=== PATIENT | male | born 1955 | race African-American/Black ===

== ENCOUNTER 2020-07-26 07:20 | Inpatient (IN) | payer MEDICARE ==
[2020-07-21 09:09] LABS: BASOPHILS # (AUTO) 0.1 (0.0-0.1); BASOPHILS % 0.8 % (0.0-1.0); EOSINOPHILS # (AUTO) 0.1 (0.0-0.4); EOSINOPHILS % 1.7 % (0.0-6.0); HEMATOCRIT 37.4 % (38.2-49.6); HEMOGLOBIN 12.4 g/dL (14.0-18.0); LYMPHOCYTES # (AUTO) 1.8 (1.0-3.2); LYMPHOCYTES % 27.8 % (18.0-39.1); MEAN CORPUSCULAR HEMOGLOBIN 28.1 pg (28-32); MEAN CORPUSCULAR HGB CONC 33.2 g/dL (31-35); MEAN CORPUSCULAR VOLUME 84.8 fL (81-99); MONOCYTES # (AUTO) 0.5 (0.2-0.8); MONOCYTES % 7.8 % (4.4-11.3); NEUTROPHILS % 61.7 % (38.7-80.0); PLATELET COUNT 168 x10e3/uL (140-360); RED BLOOD COUNT 4.41 x10e6/uL (4.3-5.7); RED CELL DISTRIBUTION WIDTH 14.1 % (11.7-14.4)
[2020-07-21 09:39] LABS: BLOOD UREA NITROGEN 13 mg/dL (7-26); BUN/CREATININE RATIO 12 (6-25); CALCIUM 9.4 mg/dL (8.4-10.2); CARBON DIOXIDE 24 mmol/L (22-29); CHLORIDE 105 mmol/L (98-107); CREATININE, SERUM 1.13 mg/dL (0.72-1.25); EST GLOMERULAR FILTRATION RATE > 60 ML/MIN (60-); GLUCOSE 88 mg/dL (74-118); SODIUM 140 mmol/L (136-145)
[~2020-07-26] VITALS: Ht 180.3 cm; Wt 80.7 kg
[~2020-07-26 07:20] MED LIST: AMLODIPINE BESY10 MG PO; ATENOLOL50 MG PO; CRESTOR10 MG PO; FLOMAX0.4 MG PO
[2020-07-26] MEDS ORDERED: GENTAMICIN 80MG/NS 100 ML 200 ML IV ONE (08:32)
[2020-07-26] MEDS ORDERED: PIPERACILLIN/TAZOBACTAM 3.375 GM VIAL ONE (08:32)
[2020-07-26] MEDS ORDERED: SODIUM CHLORIDE 0.9% 50ML 50 ML ONE (08:32)
[2020-07-26] MEDS ORDERED: IOPAMIDOL 300MG/ML 50ML INFUS..BTL IV ONE (09:23)
[2020-07-26] MEDS ORDERED: B&O 60MG R/S 60 MG SUPP PR ONE (09:23)
[2020-07-26] MEDS ORDERED: ONDANSETRON HCL INJ 2MG/ML 2ML 2 MG/ML VIAL IV PRN (09:45)
[2020-07-26] MEDS ORDERED: B&O 60MG R/S 60 MG SUPP PR PRN (09:45)
[2020-07-26] MEDS ORDERED: DIPHENHYDRAMINE HCL 25 MG CAP PO PRN (09:45)
[2020-07-26] MEDS ORDERED: ACETAMINOPHEN 1000 MG/100 ML 100 ML IV ONE (10:45)
[2020-07-26] MEDS ORDERED: ONDANSETRON HCL INJ 2MG/ML 2ML 2 MG/ML VIAL ONE (12:05)
[2020-07-26] MEDS ORDERED: FENTANYL CITRATE/PF 100MCG/2 ML INJ ONE ×2 (12:05→12:38)
[2020-07-26] MEDS ORDERED: LIDOCAINE HCL 2% LOCAL INJ 5 ML SDV VIAL INJ ONE (12:05)
[2020-07-26] MEDS ORDERED: HYDRALAZINE HCL 20 MG/ML VIAL ONE (12:05)
[2020-07-26] MEDS ORDERED: DEXAMETHASONE SOD PHOS INJ 4 MG/ML VIAL ONE (12:05)
[2020-07-26] MEDS ORDERED: FUROSEMIDE INJ 10 MG/ML 4 ML VIAL ONE (12:05)
[2020-07-26] MEDS ORDERED: SEVOFLURANE INHAL SOLN 250 ML PEN BTL ONE (12:05)
[2020-07-26] MEDS ORDERED: PROPOFOL IV EMULSION 10 MG/ML 20 ML VIAL ONE (12:05)
[2020-07-26] MEDS ORDERED: POVIDONE IODINE 0.05% 0.05 % ML PO ONE (12:05)
[2020-07-26] MEDS ORDERED: MORPHINE SULFATE INJ 4 MG/ML INJ 1ML ONE (12:27)
[2020-07-26 13:02] VITALS: BP 161/83
[2020-07-26 13:05] VITALS: BP 161/83
[2020-07-26] MEDS: D5.45%NS/KCL 20MEQ 1,000 ML IV SCH ×3 (13:22→23:11)
[2020-07-26] MEDS: PIPERACILLIN/TAZOBACTAM 3.375 GM in SODIUM CHLORIDE 0.9% 50ML 50 ML IV SCH ×2 (14:48→21:06)
[2020-07-26 14:57] LABS: BASOPHILS % 0.3 % (0.0-1.0); EOSINOPHILS % 0.1 % (0.0-6.0); HEMOGLOBIN 14.6 g/dL (14.0-18.0); LYMPHOCYTES # (AUTO) 0.6 (1.0-3.2); LYMPHOCYTES % 4.5 % (18.0-39.1); MEAN CORPUSCULAR HEMOGLOBIN 28.3 pg (28-32); MEAN CORPUSCULAR VOLUME 83.5 fL (81-99); MONOCYTES # (AUTO) 0.1 (0.2-0.8); MONOCYTES % 0.8 % (4.4-11.3); NEUTROPHILS # (AUTO) 13.4 (2.1-6.9); NEUTROPHILS % 93.8 % (38.7-80.0); PLATELET COUNT 214 x10e3/uL (140-360); RED BLOOD COUNT 5.15 x10e6/uL (4.3-5.7); RED CELL DISTRIBUTION WIDTH 14.1 % (11.7-14.4)
[2020-07-26 15:18] LABS: ANION GAP 17.2 mmol/L (8-16); BLOOD UREA NITROGEN 10 mg/dL (7-26); BUN/CREATININE RATIO 8 (6-25); CALCIUM 9.3 mg/dL (8.4-10.2); CARBON DIOXIDE 23 mmol/L (22-29); CHLORIDE 100 mmol/L (98-107); CREATININE, SERUM 1.23 mg/dL (0.72-1.25); EST GLOMERULAR FILTRATION RATE > 60 ML/MIN (60-); GLUCOSE 161 mg/dL (74-118); POTASSIUM 4.2 mmol/L (3.5-5.1); SODIUM 136 mmol/L (136-145)
[2020-07-26] MEDS: DOCUSATE SODIUM 100 MG CAP PO SCH (16:12)
[2020-07-26 16:20] VITALS: BP 179/94
[2020-07-26 16:23] LABS: LYMPHOCYTES % (MANUAL) 3 % (19-48); MONOCYTES % (MANUAL) 4 % (3.4-9.0); NEUTROPHILS % (MANUAL) 93 % (40-74)
[2020-07-26 16:24] LABS: PLATELET ESTIMATE ADEQUATE; PLATELET MORPHOLOGY COMMENT NORMAL; RBC MORPHOLOGY COMMENT NORMAL
[2020-07-26] MEDS: ATENOLOL 50 MG TAB PO SCH (16:28)
[2020-07-26 20:00] VITALS: BP 156/93
[2020-07-26 20:40] VITALS: BP 156/93
[2020-07-26] MEDS ORDERED: AMLODIPINE BESYLATE 10 MG TAB PO SCH (21:00)
[2020-07-27] VITALS (7 sets, daily range): BP systolic 150–184; BP diastolic 83–96
[2020-07-27 04:43] LABS: BASOPHILS % 0.2 % (0.0-1.0); EOSINOPHILS % 0.1 % (0.0-6.0); HEMATOCRIT 42.6 % (38.2-49.6); HEMOGLOBIN 14.6 g/dL (14.0-18.0); LYMPHOCYTES # (AUTO) 1.4 (1.0-3.2); LYMPHOCYTES % 9.7 % (18.0-39.1); MEAN CORPUSCULAR HEMOGLOBIN 28.3 pg (28-32); MEAN CORPUSCULAR HGB CONC 34.3 g/dL (31-35); MEAN CORPUSCULAR VOLUME 82.6 fL (81-99); MONOCYTES # (AUTO) 0.8 (0.2-0.8); MONOCYTES % 5.9 % (4.4-11.3); NEUTROPHILS # (AUTO) 11.6 (2.1-6.9); NEUTROPHILS % 83.7 % (38.7-80.0); PLATELET COUNT 232 x10e3/uL (140-360); RED BLOOD COUNT 5.16 x10e6/uL (4.3-5.7); RED CELL DISTRIBUTION WIDTH 14.2 % (11.7-14.4)
[2020-07-27 05:10] LABS: ANION GAP 11.5 mmol/L (8-16); BLOOD UREA NITROGEN 10 mg/dL (7-26); BUN/CREATININE RATIO 9 (6-25); CALCIUM 9.1 mg/dL (8.4-10.2); CARBON DIOXIDE 25 mmol/L (22-29); CHLORIDE 102 mmol/L (98-107); CREATININE, SERUM 1.13 mg/dL (0.72-1.25); EST GLOMERULAR FILTRATION RATE > 60 ML/MIN (60-); GLUCOSE 122 mg/dL (74-118); POTASSIUM 4.5 mmol/L (3.5-5.1); SODIUM 134 mmol/L (136-145)
[2020-07-27] MEDS: PIPERACILLIN/TAZOBACTAM 3.375 GM in SODIUM CHLORIDE 0.9% 50ML 50 ML IV SCH ×4 (05:44→21:15)
[2020-07-27] MEDS: D5.45%NS/KCL 20MEQ 1,000 ML IV SCH (07:36)
[2020-07-27] MEDS: DOCUSATE SODIUM 100 MG CAP PO SCH ×2 (07:53→16:01)
[2020-07-27] MEDS ORDERED: HYDRALAZINE HCL 20 MG/ML VIAL IV PRN (08:15)
[2020-07-27] MEDS: TAMSULOSIN HCL 0.4 MG CAP PO SCH (08:51)
[2020-07-27] MEDS: NIFEDIPINE CR 30 MG TAB PO SCH (08:51)
[2020-07-27] MEDS ORDERED: ONDANSETRON HCL 4 MG ORAL DISINTEGRATING TAB PO PRN (12:45)
[2020-07-27] MEDS: SIMVASTATIN 20 MG TAB PO SCH (21:10)
[2020-07-27] MEDS: PHENAZOPYRIDINE HCL 100 MG TAB PO PRN (21:10)
[2020-07-27] MEDS: ATENOLOL 50 MG TAB PO SCH (21:10)
[2020-07-28] VITALS (8 sets, daily range): BP systolic 127–150; BP diastolic 75–87
[2020-07-28 04:38] LABS: BASOPHILS # (AUTO) 0.1 (0.0-0.1); BASOPHILS % 0.4 % (0.0-1.0); EOSINOPHILS % 0.2 % (0.0-6.0); HEMATOCRIT 42.1 % (38.2-49.6); HEMOGLOBIN 14.1 g/dL (14.0-18.0); LYMPHOCYTES # (AUTO) 2.3 (1.0-3.2); LYMPHOCYTES % 17.8 % (18.0-39.1); MEAN CORPUSCULAR HEMOGLOBIN 27.9 pg (28-32); MEAN CORPUSCULAR HGB CONC 33.5 g/dL (31-35); MEAN CORPUSCULAR VOLUME 83.4 fL (81-99); MONOCYTES # (AUTO) 1.1 (0.2-0.8); MONOCYTES % 8.5 % (4.4-11.3); NEUTROPHILS # (AUTO) 9.3 (2.1-6.9); NEUTROPHILS % 72.6 % (38.7-80.0); PLATELET COUNT 203 x10e3/uL (140-360); RED BLOOD COUNT 5.05 x10e6/uL (4.3-5.7); RED CELL DISTRIBUTION WIDTH 14.4 % (11.7-14.4)
[2020-07-28 04:59] LABS: ANION GAP 15.5 mmol/L (8-16); BLOOD UREA NITROGEN 15 mg/dL (7-26); BUN/CREATININE RATIO 12 (6-25); CALCIUM 9.6 mg/dL (8.4-10.2); CARBON DIOXIDE 25 mmol/L (22-29); CHLORIDE 103 mmol/L (98-107); CREATININE, SERUM 1.24 mg/dL (0.72-1.25); EST GLOMERULAR FILTRATION RATE > 60 ML/MIN (60-); GLUCOSE 104 mg/dL (74-118); POTASSIUM 4.5 mmol/L (3.5-5.1); SODIUM 139 mmol/L (136-145)
[2020-07-28] MEDS: NIFEDIPINE CR 30 MG TAB PO SCH (06:30)
[2020-07-28] MEDS: DOCUSATE SODIUM 100 MG CAP PO SCH ×2 (09:19→16:00)
[2020-07-28] MEDS: TAMSULOSIN HCL 0.4 MG CAP PO SCH (09:19)
[2020-07-28] MEDS: PHENAZOPYRIDINE HCL 100 MG TAB PO PRN (09:22)
[2020-07-28] MEDS ORDERED: NIFEDIPINE CR 30 MG TAB PO ONE (10:00)
[2020-07-28] MEDS: PIPERACILLIN/TAZOBACTAM 3.375 GM in SODIUM CHLORIDE 0.9% 50ML 50 ML IV SCH ×2 (13:11→22:00)
[2020-07-28] MEDS: SIMVASTATIN 20 MG TAB PO SCH (20:11)
[2020-07-28] MEDS: ACETAMINOPHEN/CODEINE 300MG - 30MG TAB PO PRN (20:18)
[2020-07-28] MEDS: ATENOLOL 50 MG TAB PO SCH (21:00)
[2020-07-29] VITALS (8 sets, daily range): BP systolic 126–159; BP diastolic 69–82
[2020-07-29 04:59] LABS: BASOPHILS # (AUTO) 0.1 (0.0-0.1); BASOPHILS % 0.6 % (0.0-1.0); EOSINOPHILS # (AUTO) 0.1 (0.0-0.4); EOSINOPHILS % 0.8 % (0.0-6.0); LYMPHOCYTES # (AUTO) 2.5 (1.0-3.2); LYMPHOCYTES % 19.7 % (18.0-39.1); MEAN CORPUSCULAR HEMOGLOBIN 28.2 pg (28-32); MEAN CORPUSCULAR HGB CONC 34.1 g/dL (31-35); MEAN CORPUSCULAR VOLUME 82.7 fL (81-99); MONOCYTES # (AUTO) 1.3 (0.2-0.8); MONOCYTES % 10.3 % (4.4-11.3); NEUTROPHILS # (AUTO) 8.6 (2.1-6.9); NEUTROPHILS % 68.1 % (38.7-80.0); PLATELET COUNT 192 x10e3/uL (140-360); RED BLOOD COUNT 4.96 x10e6/uL (4.3-5.7); RED CELL DISTRIBUTION WIDTH 13.9 % (11.7-14.4)
[2020-07-29 05:30] LABS: BLOOD UREA NITROGEN 16 mg/dL (7-26); BUN/CREATININE RATIO 13 (6-25); CALCIUM 9.6 mg/dL (8.4-10.2); CARBON DIOXIDE 24 mmol/L (22-29); CHLORIDE 102 mmol/L (98-107); CREATININE, SERUM 1.19 mg/dL (0.72-1.25); EST GLOMERULAR FILTRATION RATE > 60 ML/MIN (60-); GLUCOSE 105 mg/dL (74-118); SODIUM 137 mmol/L (136-145)
[2020-07-29] MEDS: ACETAMINOPHEN/CODEINE 300MG - 30MG TAB PO PRN ×2 (05:31→16:12)
[2020-07-29] MEDS: NIFEDIPINE CR 30 MG TAB PO SCH (05:33)
[2020-07-29] MEDS: PIPERACILLIN/TAZOBACTAM 3.375 GM in SODIUM CHLORIDE 0.9% 50ML 50 ML IV SCH (06:48)
[2020-07-29] MEDS: TAMSULOSIN HCL 0.4 MG CAP PO SCH (09:00)
[2020-07-29] MEDS: DOCUSATE SODIUM 100 MG CAP PO SCH ×2 (09:00→16:12)
[2020-07-29] MEDS: SIMVASTATIN 20 MG TAB PO SCH (21:06)
[2020-07-29] MEDS: ATENOLOL 50 MG TAB PO SCH (21:06)
[2020-07-30] VITALS (8 sets, daily range): BP systolic 105–157; BP diastolic 72–83
[2020-07-30 05:29] LABS: BASOPHILS # (AUTO) 0.1 (0.0-0.1); BASOPHILS % 0.5 % (0.0-1.0); EOSINOPHILS # (AUTO) 0.2 (0.0-0.4); EOSINOPHILS % 1.8 % (0.0-6.0); HEMATOCRIT 38.4 % (38.2-49.6); HEMOGLOBIN 12.9 g/dL (14.0-18.0); LYMPHOCYTES # (AUTO) 1.6 (1.0-3.2); LYMPHOCYTES % 15.1 % (18.0-39.1); MEAN CORPUSCULAR HEMOGLOBIN 27.8 pg (28-32); MEAN CORPUSCULAR HGB CONC 33.6 g/dL (31-35); MEAN CORPUSCULAR VOLUME 82.8 fL (81-99); MONOCYTES # (AUTO) 1.1 (0.2-0.8); MONOCYTES % 10.2 % (4.4-11.3); NEUTROPHILS # (AUTO) 7.6 (2.1-6.9); NEUTROPHILS % 71.9 % (38.7-80.0); PLATELET COUNT 187 x10e3/uL (140-360); RED BLOOD COUNT 4.64 x10e6/uL (4.3-5.7)
[2020-07-30 05:47] LABS: ANION GAP 12.9 mmol/L (8-16); BLOOD UREA NITROGEN 20 mg/dL (7-26); BUN/CREATININE RATIO 16 (6-25); CALCIUM 9.3 mg/dL (8.4-10.2); CARBON DIOXIDE 25 mmol/L (22-29); CHLORIDE 104 mmol/L (98-107); CREATININE, SERUM 1.25 mg/dL (0.72-1.25); EST GLOMERULAR FILTRATION RATE > 60 ML/MIN (60-); GLUCOSE 104 mg/dL (74-118); POTASSIUM 3.9 mmol/L (3.5-5.1); SODIUM 138 mmol/L (136-145)
[2020-07-30] MEDS: LEVOFLOXACIN 500 MG TAB PO SCH (06:06)
[2020-07-30] MEDS: NIFEDIPINE CR 30 MG TAB PO SCH (06:09)
[2020-07-30] MEDS: ACETAMINOPHEN/CODEINE 300MG - 30MG TAB PO PRN (06:20)
[2020-07-30] MEDS: DOCUSATE SODIUM 100 MG CAP PO SCH ×2 (08:55→17:25)
[2020-07-30] MEDS: TAMSULOSIN HCL 0.4 MG CAP PO SCH (08:55)
[2020-07-30] MEDS: SIMVASTATIN 20 MG TAB PO SCH (20:25)
[2020-07-30] MEDS: ATENOLOL 50 MG TAB PO SCH (20:25)
[2020-07-31] VITALS: BP 126/74
[2020-07-31 04:00] VITALS: BP 133/77
[2020-07-31] MEDS: NIFEDIPINE CR 30 MG TAB PO SCH (06:18)
[2020-07-31] MEDS: LEVOFLOXACIN 500 MG TAB PO SCH (06:18)
[2020-07-31 07:55] VITALS: BP 139/83
[2020-07-31] MEDS: DOCUSATE SODIUM 100 MG CAP PO SCH (08:16)
[2020-07-31] MEDS: TAMSULOSIN HCL 0.4 MG CAP PO SCH (08:16)
[2020-07-31 08:50] VITALS: BP 139/83
[2020-07-31] MEDS ORDERED: NIFEDIPINE ER30 M1 PO (11:53)
[2020-07-31] MEDS ORDERED: NEURONTIN100 MG PO (11:54)
[2020-07-31] MEDS ORDERED: CELEBREX100 MG PO (11:54)
[2020-07-31 11:55] VITALS: BP 154/78
== END 2020-07-31 13:01 | disposition home or self-care (01) | DRG 713 ==
LOC: OR 07:20 → PACU V 09:38 → MED/SURG 12:51
PROVIDERS: ADMIT Internal Medicine; ATTEND Internal Medicine
PROC: 0V508ZZ Destruction of Prostate, Via Natural or Artificial Opening Endoscopic (ICD-10-PCS; principal; 2020-07-26 10:00)
PROC: 0VB08ZX Excision of Prostate, Via Natural or Artificial Opening Endoscopic, Diagnostic (ICD-10-PCS; 2020-07-26 10:00)
PROC: BT141ZZ Fluoroscopy of Kidneys, Ureters and Bladder using Low Osmolar Contrast (ICD-10-PCS; 2020-07-26 10:00)
DX: N40.1 Benign prostatic hyperplasia with lower urinary tract symptoms (principal); N13.8 Other obstructive and reflux uropathy; I16.0 Hypertensive urgency; I10 Essential (primary) hypertension; E78.5 Hyperlipidemia, unspecified; R33.8 Other retention of urine; R39.14 Feeling of incomplete bladder emptying; Z20.822 Contact with and (suspected) exposure to COVID-19
CPT/HCPCS: 36415; 71046; 74420; 76872; 76998; 80048; 83735; 85025; 88305; 93005; C1758; J0360; J1100; J1580; J1940; J2001; J2270; J2405; J2543; J3010; U0002